=== PATIENT | female | born 1980 | race Caucasian/White ===

== ENCOUNTER 2022-03-19 15:04 | Outpatient (CLI) | payer BC ==
[2022-03-19 16:41] LABS: BHCG - Serum Negative (NEGATIVE); Pregs Control Background? CLEAR/WHITE (CLR/WHITE); Pregs Control Bar Appear? YES (CONTROL BAR)
== END 2022-03-19 15:05 | disposition home or self-care (01) ==
LOC: CSHLAB 15:04
PROVIDERS: ATTEND Obstetrics & Gynecology
DX: Z01.812 Encounter for preprocedural laboratory examination (principal); Z20.822 Contact with and (suspected) exposure to COVID-19
CPT/HCPCS: 84703; 87811

== ENCOUNTER 2022-03-23 05:44 | Day surgery (SDC) | payer BC ==
[2022-03-22 13:59] VITALS: BMI 36.9
[2022-03-23] MEDS ORDERED: Mupirocin 2% Ointment 22 GM Tube ONE (06:23)
[2022-03-23] MEDS ORDERED: Lidocaine 1% (PF) 30 ML VIAL ONE (06:23)
[2022-03-23] MEDS ORDERED: Fentanyl 100 MCG/2 ML VIAL ONE (06:41)
[2022-03-23] MEDS ORDERED: PROPOFOL 40 ML ONE (06:42)
[2022-03-23] MEDS ORDERED: Ondansetron PF 4 MG/2 ML Vial ONE (06:42)
[2022-03-23] MEDS ORDERED: Dexamethasone 4 mg/ml Vial ONE (06:42)
[2022-03-23] MEDS ORDERED: Lidocaine 1% PF 5 ML VIAL ONE (06:42)
[2022-03-23] MEDS ORDERED: CEFAZOLIN 2 GM VIAL ONE (06:58)
[2022-03-23] MEDS ORDERED: Triamcinolone 40 MG/ML VIAL ONE (07:06)
[2022-03-23] MEDS ORDERED: PHENYLEPHRINE-NS 100 MCG/ML 10 ML SYRINGE ONE (07:40)
[2022-03-23 07:44] LABS: Hemoglobin 14.3 g/dL (12.0-15.5); Mean Corpuscular HGB CONC 33.1 g/dL (32.0-36.0); Mean Corpuscular Hemoglobin 28.3 pg (27.0-33.0); Mean Corpuscular Volume 85.4 fl (81.6-98.3); Mean Platelet Volume 10.7 fl (7.4-10.4); Platelet Count 347 10x3/uL (150-450); Red Blood Cell (RBC) Count 5.06 10x6/uL (3.90-5.03); White Blood Cell (WBC) Count 12.6 10x3/uL (3.5-10.5)
[2022-03-23] MEDS ORDERED: Triple Antibiotic Oint 1 GM Packet ONE (08:20)
[2022-03-23] MEDS ORDERED: Ketorolac Tromethamine 30 MG/ML VIAL ONE (08:49)
[2022-03-23 09:35] LABS: Bilirubin Neg (Negative); Blood, Urine 50 (Negative); Glucose, Urine (Dipstick) Normal (Negative); Ketone, Urine Negative (Negative); Leukocyte 500 (Negative); Nitrite Negative (Negative); Protein, Urine (Dipstick) 30 mg/dl (Neg-Trace); Urobilinogen Normal mg/dL (Less than 2)
[2022-03-23 09:38] LABS: Clarity Slightly Cloudy (Clear)
[2022-03-23 09:40] LABS: Urine Culture Reflex No No
[2022-03-23 09:46] LABS: Bacteria/HPF Rare-Few HPF (None Seen); Squamous Epithelial 0-3 HPF (0-3); WBC/HPF 21-50 HPF (0-3)
[2022-03-23] MEDS ORDERED: HYDROmorphone 2 MG/ML VIAL SLOW IVP PRN (10:30)
[2022-03-23] MEDS ORDERED: Meperidine HCl/PF 25 MG/ML VIAL IV PRN (10:30)
[2022-03-23] MEDS ORDERED: Ketorolac Tromethamine 30 MG/ML VIAL IM/IV PRN (10:30)
[2022-03-23] MEDS ORDERED: Meperidine HCl/PF 25 MG/ML VIAL SLOW IVP PRN (10:30)
[2022-03-23] MEDS ORDERED: Promethazine HCl 25 MG/ML VIAL IM/IV PRN (10:30)
[2022-03-23] MEDS ORDERED: Ondansetron HCl/PF 4 MG/2 ML Vial IVP PRN (10:30)
== END 2022-03-23 10:20 | disposition home or self-care (01) ==
LOC: CSHSDC 05:44
PROVIDERS: ATTEND Obstetrics & Gynecology
PROC: 0UBL0ZZ Excision of Vestibular Gland, Open Approach (ICD-10-PCS; principal; 2022-03-23)
PROC: 0U5B8ZZ Destruction of Endometrium, Via Natural or Artificial Opening Endoscopic (ICD-10-PCS; principal; 2022-03-23)
DX: N75.1 Abscess of Bartholin's gland (principal); N92.0 Excessive and frequent menstruation with regular cycle; N85.8 Other specified noninflammatory disorders of uterus; R93.89 Abnormal findings on diagnostic imaging of other specified body structures; N75.0 Cyst of Bartholin's gland; E03.9 Hypothyroidism, unspecified; Z79.899 Other long term (current) drug therapy; Z88.8 Allergy status to other drugs, medicaments and biological substances; Z20.822 Contact with and (suspected) exposure to COVID-19
CPT/HCPCS: 81001; 85027; 87086; 88304; 88305; J0690; J1100; J1885; J2001; J2405; J2704; J3010; J3301